=== PATIENT | male | born 1995 | race Caucasian/White ===

== ENCOUNTER 2017-08-29 23:24 | Emergency (ER) | payer OTHER ==
[~2017-08-29] VITALS: Ht 162.6 cm; Wt 59.9 kg
[2017-08-29 23:32] VITALS: TEMP 37; Ht 162.6 cm; Wt 59.9 kg
[2017-08-29] MEDS ORDERED: ONDANSETRON 4MG OD TAB PO ONE (23:45)
[2017-08-29] MEDS ORDERED: RANITIDINE HCL 150 MG TAB PO ONE (23:45)
--- NOTE | 2017-08-29 23:49 | EMERGENCY ROOM VISIT NOTE ---
History Report prepared by Joann: Clint Proctor Under the Supervision of: Dr. Vijay Scott M.D. First contact with patient: 23:36 Chief Complaint: GI ASSESSMENT Stated Complaint: NAUSEA, VOMITTING History of Present Illness The patient is a 21 year old male who presents to the Emergency Room with complaints of constant vomiting that started 10 days ago. The patient states that every time he ate, he would start to become nauseous and vomit. He reports that over the weekend he developed a fever of 102.4, which caused him to go to the doctor. The patient reports that his insurance did not cover any tests, but his doctor diagnosed him with influenza. He states that he started to feel relieved of his fever throughout the week. The patient states that he is still vomiting and has been dry heaving as well. He states that today he ate chicken noodle soup and was not able to keep the food down. The patient states that he has been able to drink Gatorade and keep liquids down. He reports that he has taken Zofran and Tums for his symptoms, but denies any relief. The patient admits to taking Adderall for studying. The patient denies drinking alcohol since he became ill, diarrhea, abdominal pain, melena, and hematochezia. Source of History: patient Onset: 10 days ago Position: other (global) Quality: other (global) Timing: constant Modifying Factors (Relieving): other (Zofran, Tums) Associated Symptoms: + fevers (resolved), + nausea, No abdominal pain, No melena, No hematochezia, No diarrhea Review of Systems All systems have been listed, reviewed, and are negative other than those previously mentioned. Please see Additional Medical History Sheet. Past Medical & Surgical Medical Problems: (1) No pertinent past medical history Surgical Problems: (1) No pertinent past surgical history Family History Heart disease Social History Smoking Status: Current Some Day Smoker Alcohol Use: occasionally Drug Use: other (Adderall) Marital Status: single Housing Status: lives with roommate Occupation Status: [employer] Current/Historical Medications Scheduled Ondasetron Odt (Zofran Odt), 4 MG SL Q4 Ranitidine Hcl (Zantac), 150 MG PO BID Scheduled PRN Ondansetron Hcl (Zofran), 4 MG PO Q8 PRN for Nausea Allergies Coded Allergies: No Known Allergies (Unverified , 08/29/17) Physical Exam Vital Signs Date Time Temp Pulse Resp B/P (MAP) Pulse Ox O2 Delivery O2 Flow Rate FiO2 08/30/17 01:02 82 20 130/72 98 Room Air 08/29/17 23:32 37.0 91 18 132/74 98 Room Air Physical Exam GENERAL: Patient awake, alert, oriented x 3. Patient follows commands. Patient does not appear toxic. Patient is adequately hydrated and well- nourished. SKIN: No erythema, pallor, cyanosis or rash HEENT: Normal head, pupils equal, reactive to light and accommodation. LUNGS: Clear to auscultation. No wheezes, no rales, no rhonchi. HEART: No murmurs. No gallops. No rubs ABDOMEN: No masses, no rebound, no hepatomegaly or splenomegaly. Bowel sounds are active. EXTREMITIES: No signs of trauma or infection. NEUROLOGIC: Cranial nerves II-XII within normal limits. No gross motor sensory function deficits. Medical Decision & Procedures Laboratory Results 08/30/17 00:03 08/30/17 00:03 Test 08/30/17 00:03 08/30/17 01:00 Red Blood Count 5.05 M/uL (4.7-6.1) Mean Corpuscular Volume 88.5 fL (80-100) Mean Corpuscular Hemoglobin 31.1 pg (25-34) Mean Corpuscular Hemoglobin Concent 35.1 g/dl (32-36) RDW Standard Deviation 40.2 fL (36.4-46.3) RDW Coefficient of Variation 12.6 % (11.5-14.5) Mean Platelet Volume 9.8 fL (7.4-10.4) Anion Gap 6.0 mmol/L (3-11) Est Creatinine Clear Calc Drug Dose 94.9 ml/min Estimated GFR () 119.2 Estimated GFR (Non- 102.9 BUN/Creatinine Ratio 13.1 (10-20) Calcium Level 9.8 mg/dl (8.5-10.1) Lipase 80 U/L (73-393) Urine Color YELLOW Urine Appearance CLEAR (CLEAR) Urine pH 8.0 (4.5-7.5) Urine Specific [place] 1.010 (1.000-1.030) Urine Protein NEG (NEG) Urine Glucose (UA) NEG (NEG) Urine Ketones NEG (NEG) Urine Occult Blood NEG (NEG) Urine Nitrite NEG (NEG) Urine Bilirubin NEG (NEG) Urine Urobilinogen NEG (NEG) Urine Leukocyte Esterase NEG (NEG) Laboratory results as stated above per my review. Medications Administered Medications (Trade) Dose Ordered Sig/Rachel Route Start Time Stop Time Status Last Admin Dose Admin Ondansetron HCl (Zofran Odt) 4 mg ONE ONCE PO 08/29/17 23:45 08/29/17 23:46 DC 08/30/17 00:06 4 MG Ranitidine HCl (zANTac TAB) 150 mg NOW ONCE PO 08/29/17 23:45 08/29/17 23:46 DC 08/30/17 00:06 150 MG ED Course 2336: Past medical records reviewed. The patient was evaluated in room B02. A complete history and physical examination was performed. 2345: Ordered Zantac Tab 150 mg PO, Ondansetron HCl 4 mg PO. 0114: I reevaluated the patient and he is feeling better. I am still waiting for his urine results. 0120: Upon reevaluation, the patient appeared to have improvement of his symptoms. I discussed today's findings with the patient. He verbalized agreement of the treatment plan. The patient was discharged home. Medical Decision Nurses notes reviewed. Medical history sheet reviewed. Differential diagnosis includes but is not limited to: acute gastroenteritis, peptic/gastric ulcer disease, gastritis, dehydration, and metabolic disorder. Multiple labs and urinalysis were obtained. The patient is slightly hypokalemic. The patient most likely had an acute gastroenteritis 1-2 weeks ago and is now left with some slight gastritis. The patient has had no alcohol in the past 10 days. The patient denies any blood in his stools or black stools. The patient had significant relief with Zofran and Zantac which she will continue at home. Most likely this should alleviate his symptoms but if not he may require endoscopy. The patient is to follow-up with his family physician when he returns home for Thanksgiving. Medication Reconcilliation Current Medication List: was personally reviewed by me Blood Pressure Screening Patient's blood pressure: Normal blood pressure Impression Primary Impression: Gastritis Scribe Attestation The scribe's documentation has been prepared under my direction and personally reviewed by me in its entirety. I confirm that the note above accurately reflects all work, treatment, procedures, and medical decision making performed by me. Departure Information Dispostion Home / Self-Care Prescriptions Ondasetron Odt (ZOFRAN ODT) 4 Mg Tab 4 MG SL Q4 for Nausea, #10 TAB Prov: Vijay Scott M.D. 08/30/17 Ranitidine Hcl (ZANTAC) 150 Mg Tab 150 MG PO BID, #20 TAB Prov: Vijay Scott M.D. 08/30/[address] [facility] Forms HOME CARE DOCUMENTATION FORM, IMPORTANT VISIT INFORMATION Patient Instructions My [facility] Additional Instructions 1 Zofran every 4 hours as needed for nausea. 150 mg of Zantac twice a day for the next 10 days. Follow-up with your family physician within the next 2 weeks. Avoid all alcohol until symptoms have completely resolved.
[2017-08-30 00:18] LABS: HEMATOCRIT 44.7 % (42-52); MEAN CELL VOLUME 88.5 fL (80-100); MEAN CORPUSCULAR HEMOGLOBIN 31.1 pg (25-34); MEAN CORPUSCULAR HGB CONC 35.1 g/dl (32-36); MEAN PLATELET VOLUME 9.8 fL (7.4-10.4); PLATELET COUNT 333 K/uL (130-400); RED BLOOD COUNT 5.05 M/uL (4.7-6.1); WHITE BLOOD COUNT 9.03 K/uL (4.8-10.8)
[2017-08-30 00:39] LABS: BUN/CREATININE RATIO 13.1 (10-20); CALCIUM 9.8 mg/dl (8.5-10.1); CREATININE 1.04 mg/dl (0.60-1.40); POTASSIUM 3.4 mmol/L (3.5-5.1)
[2017-08-30] MEDS ORDERED: ONDA4TAB46 PO (00:50)
[2017-08-30 01:02] VITALS: BP 130/72; PULSE 82; O2SAT 98
[2017-08-30 01:08] LABS: URINE APPEARANCE CLEAR (CLEAR); URINE BILIRUBIN NEG (NEG); URINE COLOR YELLOW; URINE NITRITE NEG (NEG); UROBILINOGEN NEG (NEG); ZZUR CULT IF INDIC CLEAN CATCH NO
[2017-08-30 01:16] LABS: MANUAL MICROSCOPIC REQUIRED? NO; REVIEW REQ? NO
[2017-08-30] MEDS ORDERED: ONDA4TAB10 SL (01:26)
[2017-08-30] MEDS ORDERED: RANI150T3 PO (01:26)
== END 2017-08-30 01:31 | disposition home or self-care (01) ==
LOC: C.EDB 23:25
DX: K29.70 Gastritis, unspecified, without bleeding (principal); F17.200 Nicotine dependence, unspecified, uncomplicated; Z82.49 Family history of ischemic heart disease and other diseases of the circulatory system